=== PATIENT | male | born 2000 | race African-American/Black ===

== ENCOUNTER 2025-08-21 10:49 | Emergency (ER) | payer SELFPAY ==
[~2025-08-21] VITALS: Ht 175.3 cm; Wt 68.0 kg
[2025-08-21 11:02] VITALS: BP 120/42; TEMP 98.6
[2025-08-21] MEDS ORDERED: KETOROLAC TROMETHAMINE 15 MG/ML VIAL ONE (12:09)
[2025-08-21] MEDS ORDERED: AMOX-430 PO (12:18)
[2025-08-21 12:51] VITALS: O2SAT 98
[2025-08-21] MEDS: KETOROLAC TROMETHAMINE 15 MG/ML VIAL IM ONE (12:51)
== END 2025-08-21 13:26 | disposition home or self-care (01) ==
LOC: ER 10:56
DX: J02.9 Acute pharyngitis, unspecified (principal); R59.9 Enlarged lymph nodes, unspecified
CPT/HCPCS: 99283; J1885